=== PATIENT | male | born 1965 | race Caucasian/White ===

== ENCOUNTER 2017-01-08 15:45 | Emergency (ER) | payer MEDICAID, OTHER ==
--- NOTE | 2017-01-08 16:35 | ERNOTE ---
Upper Extremity HPI - General Extremities Pain Location: elbow: right Time Seen by Provider: 01/08/17 16:09 Source: patient Exam Limitations: no limitations - Immun/Allergies/Home Medications Allergies/Adverse Reactions: Allergies Allergy/AdvReac Type Severity Reaction Status Date / Time Penicillins Allergy Verified 01/08/17 15:56 Home Medications: HOME MEDICATIONS Naproxen [Naprosyn] 500 mg PO BID #60 tablet 01/08/17 [Last Taken Unknown] Sulfamethoxazole/Trimethoprim [Bactrim Ds] 1 tab PO BID #20 tab 01/08/17 [Last Taken Unknown] traMADol HCL [Ultram] 50 mg PO QID PRN #20 tablet 01/08/17 [Last Taken Unknown] - History of Present Illness Narrative: Patient complains of pain and some edema in the right elbow area for approximately last 2 weeks. He states he is having some difficulty even straightening the arm out now and rates it as at least moderate in intensity. Occurred: other - past 2 weeks Location of Incident: home Severity: moderate Method of Injury: Reports: no apparent injury Loss of Consciousness: Reports: no loss of consciousness Other Injuries: Reports: none Review of Systems - Review of Systems Constitutional: Present: See HPI EYE: Present: no symptoms reported ENT: Present: no symptoms reported Respiratory: Present: no symptoms reported Cardiology: Present: no symptoms reported Gastrointestinal/Abdominal: Present: no symptoms reported Genitourinary: Present: no symptoms reported Musculoskeletal: Present: joint pain Skin: Present: no symptoms reported Neurological: Present: no symptoms reported Endocrine: Present: no symptoms reported Hematologic/Lymphatic: Present: no symptoms reported Psych: Present: no symptoms reported - Patient's Past Medical History Patient History - Medical: No pertinent hx, Diabetes Type 2 Patient History - Cardiac/Respiratory: Asthma Patient History - Cancer: No Hx of Cancer Patient History - Surgical Procedures: Appendectomy Patient History - Other: None - Social History Living Situations: home Abuse History: No History of abuse Psych History: No pertinent hx Alcohol Use: none Drug Use: none Physical Exam - Physical Exam General Appearance: Present: wd/wn, alert, moderate distress Head Exam: Present: normal inspection Eye Exam: Normal inspection: bilateral, PERRL: bilateral Ears, Nose, Throat: Present: normal ENT inspection, H, normal pharynx Neck: Present: normal inspection, nontender Respiratory: Present: no respiratory distress, normal breath sounds, no accessory muscle use, chest nontender, lungs clear Cardiovascular/Chest: Present: regular rate, rhythm, no murmur, normal peripheral pulses Gastrointestinal/Abdominal: Present: normal bowel sounds, nontender, nondistended, soft, no organomegaly Rectal Exam: Present: deferred Back Exam: Present: normal inspection, normal range of motion Extremity Exam: Present: decreased range of motion, extremity edema, other - tenderness to palpation over the olecranon bursa Neurological Exam: Present: alert, oriented, normal mood/affect Skin Exam: Present: normal color, warm/dry Lymphatic Exam: Present: no adenopathy ED Progress - Vital Signs Patient's Vital Signs:: I have reviewed the patient's vital signs. Vital Signs: Vital Signs 01/08/17 15:50 Temperature 36.9 C Pulse Rate 95 Respiratory 12 Rate Blood Pressure 163/107 O2 Sat by Pulse 96 Oximetry - X-Ray X-Ray #1 X-Ray: elbow Interpretation: Reviewed by me - Progress/Reassessment Chief Complaint: Upper Extremity Injury/Problem Plan - Plan Plan: Patient will be started on Bactrim DS, Naprosyn and tramadol for the breakthrough pain. Patient will be instructed to follow-up with his family physician in a week to 10 days. Departure Clinical Impression: Olecranon bursitis of right elbow - Departure Disposition: Home self-care Condition: Good Instructions: Elbow Bursitis, [id number] Additional Instructions: see your FP in a week to 10 days Referrals: Padma Hilario ARNP [Primary Care Provider] - Prescriptions: Naproxen [Naprosyn] 500 mg PO BID #60 tablet Sulfamethoxazole/Trimethoprim [Bactrim Ds] 1 tab PO BID #20 tab traMADol HCL [Ultram] 50 mg PO QID PRN #20 tablet PRN Reason: Moderate Pain
[2017-01-08 16:52] VITALS: BP 142/90
== END 2017-01-08 16:50 | disposition home or self-care (01) ==
LOC: ER 15:45
DX: M70.21 Olecranon bursitis, right elbow (principal)